=== PATIENT | male | born 1980 | race Caucasian/White ===

== ENCOUNTER 2025-08-18 11:05 | Emergency (ER) | payer BC, SELFPAY ==
[2025-08-18 11:06] VITALS: BP 153/103; PULSE 99; RESP 18; TEMP 37.1; O2SAT 97
--- NOTE | 2025-08-18 11:38 | RAD_ITS ---
PROCEDURE: CHEST PA AND LATERAL 08/18/2025 REASON FOR EXAM: CHEST PAIN TECHNIQUE: Procedure Code: RADCXR Modality: DX Procedure: CHEST PA AND LATERAL COMPARISON: None FINDINGS: Hardware: EKG electrodes are seen. Heart: The heart size is normal. Mediastinum: The mediastinal contour is unremarkable. Lungs: The lungs are clear. Bones: Degenerative changes are identified within the thoracic spine. RAD/Chest PA and Lateral IMPRESSION: NO ACUTE FINDINGS. Reading Location: [id number]
--- NOTE | 2025-08-18 11:38 | EKG12_ITS ---
Test Reason : ANXIETY Blood Pressure : */* mmHG Vent. Rate : 89 BPM Atrial Rate : 89 BPM P-R Int : 146 ms QRS Dur : 76 ms QT Int : 354 ms P-R-T Axes : 41 -2 0 degrees QTcB Int : 430 ms Normal sinus rhythm Inferior infarct , age undetermined Abnormal ECG Confirmed by Yury Valdez ([id number]), editor & co founder JOB RODRÍGUEZ ([id number]) on 08/19/2025 10:21:05 AM Referred By: MICHAEL/JORGE Confirmed By: Yury Valdez
--- NOTE | 2025-08-18 11:38 | EX.ED.DYSGE1 ---
HPI History of Present Illness Chief Complaint: Chest Other Informant: patient Onset/Context/Timing Onset: Today Current Severity: Gone Maximum Severity: Mild Narrative Narrative: 45-year-old male history of a MA in March was treated at [facility] had a stent placed is on Brilinta and aspirin. He has felt fatigued and anxious recently. He went to make sure everything was okay. He denies any chest pain. He just says he feels little off. Denies shortness of breath. Had labs done yesterday at the [facility] that were unremarkable. Denies any fever. No vomiting. No diarrhea no melena no dysuria. Patient states he gets anxious because of the recent heart attack in March and just went to make sure that was okay. Prior similar symptoms: Yes Recent Illness/Hospitalization: No [facility] Medical History (Updated 08/18/25 @ 14:[address] Chaz Quintanilla MD) Myocardial infarction Home Medications ?Medication ?Instructions ?Recorded ?Last Taken ?Type aspirin 81 mg chewable tablet 1 tab PO DAILY 08/18/25 08/18/25 History atorvastatin 80 mg tablet 80 mg PO DAILY 08/18/25 08/17/25 History lorazepam 0.5 mg tablet (Ativan) 0.5 mg PO BID PRN anxiety 4 days 08/18/25 Unknown Rx #7 tabs losartan 25 mg tablet 25 mg PO DAILY 08/18/25 08/18/25 History metoprolol succinate 50 mg 50 mg PO DAILY 08/18/25 08/18/25 History tablet,extended release 24 hr nitroglycerin 0.4 mg sublingual 0.4 mg sublingual Q5M PRN chest 08/18/25 Unknown History tablet pain ticagrelor 90 mg tablet 90 mg PO BID 08/18/25 08/18/25 History Allergy/AdvReac Type Severity Reaction Status Date / Time No Known Allergies Allergy Verified 08/18/25 11:06 Family History no significant family his Surgical History no surgical history Social History Smoking Status: Never smoker ROS ROS ED ROS Narrative Fatigue. Constitutional Constitutional ED: Denies chills or fever(s) Eyes Eyes: Denies blurry vision ENT ENT ED: Denies ear pain Cardiovascular Cardiovascular: Denies chest pain Respiratory/Chest Respiratory/Chest: Denies cough Gastrointestinal Gastrointestinal: Denies abdominal pain Genitourinary Genitourinary ED: Denies dysuria Musculoskeletal Musculoskeletal: Denies arthralgias Integumentary Denies abscess Neurologic Neurologic: Denies headache(s) Psychiatric Psychiatric: Reports anxiety Endocrine Endocrinology: Denies cold intolerance Hematologic/Lymphatic Hematologic/Lymphatic: Reports none Allergic/Immunologic Allergic/Immunologic ED: Denies mouth swelling, tongue swelling or urticaria EXAM Physical Exam Narrative Exam Narrative: Well-appearing 45-year-old male. Vital signs stable afebrile. Pulse ox 97% room air no hypoxia. H EENT exam pupils round react light. Moist mutes membranes. Neck nontender no JVD. No lymphadenopathy. Back nontender. Lungs clear to auscultation bilaterally. Heart regular rhythm no murmur. Chest wall ribs nontender. Abdomen soft nontender. No peritoneal signs. Moving all 4 extremities. Normal cargo bracer strength. Normal dorsi plantarflexion. Equal symmetrical radial pulses. Neurologically he is awake alert he is answering questions he is following commands. NIH is 0. Const Vital Signs: 08/18/25 11:06 08/18/25 13:05 Temperature 98.8 F Temperature Source Oral Pulse Rate 99 85 Respiratory Rate 18 16 Blood Pressure 153/103 H 116/78 Blood Pressure Mean 119 90 Pulse Ox 97 97 Oxygen Delivery Method Room Air Room Air MDM MDM MDM Narrative Medical decision making narrative: 45-year-old male MA in March his exam is benign he is feeling fatigued. I reviewed the labs he done the [facility] yesterday. His CBC and chemistries are unremarkable. TSH was mildly elevated 6.9. I will do some screening labs he has a benign exam I agree with him this may be anxiety related. Repeat exam at 2:07 PM patient doing well. Symptom-free. He believes a second anxiety I tend to agree with him. He is comfortable being discharged to home. As is his . We went over all his test results. He be given a prescription for Ativan as needed. History & Record Review Discussion w/independent historian: Patient Additional record(s) reviewed:: No prior records Lab Data Attestation: I reviewed the patient's lab results. Lab results narrative: CBC normal. White count of 7. H&H 14 and 41. Platelets 213. Electrolytes show gap 11. Normal BUN and creatinine of 15 and 0.9. Glucose 114. Troponin 7. Chest x-ray no acute process. Labs: Laboratory Results - last 24 hr 08/18/25 11:50 WBC 7.8 RBC 4.95 Hgb 14.5 Hct 41.4 MCV 83.6 MCH 29.3 MCHC 35.0 RDW Std Deviation 38.5 RDW Coeff of Cristina 12.7 Plt Count 213 MPV 10.5 Immature Gran % (Auto) 0.400 Neut % (Auto) 78.0 H Lymph % (Auto) 12.[address] % (Auto) 8.2 Eos % (Auto) 0.5 Baso % (Auto) 0.5 Absolute Neuts (auto) 6.1 Absolute Lymphs (auto) 0.97 Nucleated RBC % 0 Sodium 135 Potassium 4.0 Chloride 101 Carbon Dioxide 23.4 Anion Gap 11 BUN 15 Creatinine 0.99 Estim Creat Clear Calc 109.85 Est GFR (MDRD) Non-Af 96 BUN/Creatinine Ratio 15.5 Glucose 114 H Calcium 9.4 Troponin T High Sens 7 Radiography Chest X-Ray - ED: 2 View, Read by ED Physician, Heart, Lungs, Mediastinum, Bony Structures, No Acute Disease and Chronic Changes Diagnostic Testing: Clinical Impression(s) from Imaging Studies Chest X-Ray 08/18/25 11:38 IMPRESSION: NO ACUTE FINDINGS. Reading Location: [facility] Chest x-ray, 2 views, AP and lateral, interpreted by myself and the radiologist shows normal cardiac silhouette. Normal lung kim. No acute process. Rhythm Strip Rhythm Strip: Sinus Rhythm Rate: 89 Ectopy: None EKG Initial EKG: Attestation: I personally reviewed and interpreted this EKG as follows: Interpretation: Sinus Rhythm and No Acute Injury Pattern Comments: Normal sinus rhythm rate 89 no acute signs of MA or ischemia. No dysrhythmia. Discharge Plan Triage Chief Complaint: Chest Other ED Provider: Chaz Quintanilla Dx/Rx/DC Orders Clinical Impression: Fatigue, History of MA (myocardial infarction), Anxiety Instructions: ED Anxiety Reaction Prescriptions: New lorazepam [Ativan] 0.5 mg tablet 0.5 mg PO BID PRN (Reason: anxiety) 4 Days Qty: 7 0RF No Action atorvastatin 80 mg tablet 80 mg PO DAILY metoprolol succinate 50 mg tablet extended release 24 hr 50 mg PO DAILY losartan 25 mg tablet 25 mg PO DAILY nitroglycerin 0.4 mg tablet, sublingual 0.4 mg sublingual Q5M PRN (Reason: chest pain) aspirin 81 mg tablet,chewable 1 tab PO DAILY ticagrelor 90 mg tablet 90 mg PO BID Primary Care Provider: Care Physician,No Primary Referrals: NOT,DEFINED [Non-Staff, None] Activity Restrictions/Additional Instructions: Follow-up with primary care provider. Ativan as needed for anxiety. Do not drive or drink alcohol if using it. Print Language: Trinidadian Disposition Disposition: Home, Self Care
[2025-08-18 11:57] VITALS: BMI 32.5
[2025-08-18 12:06] LABS: Hematocrit 41.4 % (40-54); Hemoglobin 14.5 g/dL (13.0-16.5); Immature Granulocytes Count 0.030 X10^3/uL (0.0-0.0); Mean Corp Hgb Conc 35.0 g/dL (32-36); Mean Corpuscular Volume 83.6 fL (80-94); Mean Platelet Vol. 10.5 fl (6.2-12.0); NRBC Flagged by Analyzer 0 % (0-5); Platelet Count 213 K/mm3 (150-450); RBC Distribution Width CV 12.7 % (11.6-14.6); RBC Distribution Width SD 38.5 fl (35.1-43.9); Red Blood Count 4.95 M/mm3 (4.6-6.2); White Blood Count 7.8 K/mm3 (4.4-11.0)
[2025-08-18 12:26] LABS: Anion Gap 11 (5-15); BUN 15 mg/dL (4-19); BUN/Creat Ratio 15.5 RATIO (10-20); Calcium,Total 9.4 mg/dL (7.6-11.0); Carbon Dioxide 23.4 mmol/L (21.0-32.0); Chloride 101 mmol/L (98-108); Estimated Creatinine Clearance 109.85 ml/min (50-250); Glucose 114 mg/dL (70-99); Potassium 4.0 mmol/L (3.3-5.1); Troponin T High Sensitivity 7 ng/L (<=22)
[2025-08-18 13:05] VITALS: BP 116/78; PULSE 85; RESP 16; O2SAT 97
[2025-08-18 14:22] VITALS: BP 116/78; PULSE 85; RESP 16; TEMP 37.1; O2SAT 97
== END 2025-08-18 14:23 | disposition home or self-care (01) ==
PROVIDERS: Emergency Provider Emergency Medicine; Visit Provider Emergency Medicine
DX: R53.83 Other fatigue (principal); F41.9 Anxiety disorder, unspecified; I25.2 Old myocardial infarction; Z79.899 Other long term (current) drug therapy; Z79.02 Long term (current) use of antithrombotics/antiplatelets; Z79.82 Long term (current) use of aspirin
CPT/HCPCS: 71046; 80048; 84484; 85025; 93005; 99284; A4216